=== PATIENT | female | born 1985 | race Caucasian/White ===

== ENCOUNTER 2017-10-02 22:23 | Emergency (ER) | payer OTHER ==
[~2017-10-02] VITALS: Ht 167.6 cm; Wt 76.7 kg
[2017-10-02] MEDS ORDERED: ULTRAM50 MG PO (22:59)
== END 2017-10-02 23:16 | disposition home or self-care (01) ==
LOC: ER 22:23
DX: K62.89 Other specified diseases of anus and rectum (principal); K64.9 Unspecified hemorrhoids
CPT/HCPCS: 99282